=== PATIENT | female | born 1955 | race African-American/Black ===

== ENCOUNTER 2017-01-31 14:27 | Emergency (ER) | payer BC ==
[~2017-01-31] VITALS: Ht 175.3 cm; Wt 70.0 kg
[2017-01-31 14:28] VITALS: BP 162/80; PULSE 62; RESP 20; TEMP 98.6; O2SAT 100
--- NOTE | 2017-01-31 14:47 | PD ---
Physical Exam Time Seen by Provider: 14:47 Narrative 61 y/o female with a painful lump in the back of her neck. Vital signs reviewed. seen at triage desk. Awaiting bed placement. Data Data Last Documented VS Vital Signs Date Time Temp Pulse Resp B/P Pulse Ox O2 Delivery O2 Flow Rate FiO2 01/31/17 14:28 98.6 62 20 162/80 100 Room Air MDM Medical Record Reviewed: Yes Supervised Visit with KOTA: Angel Duran Jan 31, 2017 14:47
[2017-01-31] MEDS ORDERED: CLIN1CAP5 PO (15:21)
[2017-01-31] MEDS ORDERED: IBUP-232 PO (15:21)
--- NOTE | 2017-01-31 15:21 | PD ---
HPI Chief Complaint: Skin Problem Time Seen by Provider: 15:18 Travel History International Travel<30 days: No Contact w/Intl Traveler<30days: No Traveled to known affect area: No History of Present Illness HPI 61-year-old female presents emergency Department with complaint of a lump to her upper back that is painful and red times one week with worsening since last night. Denies fever, vomiting. Has not taken any medications or trenching severely her symptoms. PFSH Social History Tobacco Use: No Allergies-Medications (Allergen,Severity, Reaction): Coded Allergies: Latex (Verified Allergy, Unknown, rashes, 01/31/17) PEANUTS (Verified Allergy, Unknown, swelling , 01/31/17) Sulfa (Verified Allergy, Unknown, swelling, 01/31/17) Reported Meds & Prescriptions Reported Meds & Active Scripts Active Ibuprofen 600 Mg Tab 600 Mg PO Q6H PRN Clindamycin (Clindamycin HCl) 150 Mg Cap 450 Mg PO Q6H 10 Days Reported Bystolic (Nebivolol) 5 Mg Tab 5 Mg PO DAILY Losartan (Losartan Potassium) 100 Mg Tab 100 Mg PO DAILY Review of Systems Except as stated in HPI: all other systems reviewed are Neg Physical Exam Narrative GENERAL: Well-nourished, well-developed female patient, in no acute distress; afebrile, nontoxic-appearing SKIN: There is an indurated area to the mid upper back which measures about 1 cm in diameter. It is nonfluctuant and there is no pointing or drainage. There is a zone of inflammation around it but no lymphangitis. HEAD: Atraumatic. Normocephalic. EYES: Pupils equal and round. No scleral icterus. No injection or drainage. ENT: Mucosa pink and moist. Airway patent. NECK: Trachea midline. CARDIOVASCULAR: Regular rate. RESPIRATORY: No accessory muscle use. GASTROINTESTINAL: Flat. MUSCULOSKELETAL: No obvious deformities. No clubbing. No cyanosis. No edema. NEUROLOGICAL: Awake and alert. Oriented 3. No obvious cranial nerve deficits. Motor grossly within normal limits. Normal speech. PSYCHIATRIC: Appropriate mood and affect; insight and judgment normal. Data Data Last Documented VS Vital Signs Date Time Temp Pulse Resp B/P Pulse Ox O2 Delivery O2 Flow Rate FiO2 01/31/17 14:28 98.6 62 20 162/80 100 Room Air MDM Medical Decision Making Medical Screen Exam Complete: Yes Emergency Medical Condition: Yes Medical Record Reviewed: Yes Differential Diagnosis Abscess, folliculitis, cellulitis Narrative Course 61-year-old female who exam consistent with a nonfluctuant abscess to the mid upper back. It is approximately 1 cm in diameter and without pointing or drainage. Clindamycin and ibuprofen prescribed for home. Instructed patient to follow up with primary care provider. Patient verbalizes understanding and agreement with treatment plan. Patient is medically cleared and stable for discharge. Discussed reasons to return to the emergency department. Patient agrees with treatment plan. The patients vital signs are stable and the patient is stable for outpatient follow-up and treatment. Patient discharged home, stable and in no acute distress. Diagnosis Primary Impression: Abscess of back Referrals: Primary Care Physician Patient Instructions: Abscess (ED), Abscess Follow-up (ED), General Instructions Additional Instructions: Complete full course of antibiotics Warm compresses to the affected area Keep area clean and dry Ibuprofen or Tylenol as directed and as needed for pain and inflammation Follow-up with primary care provider Return to emergency department immediately with worsening of symptoms Med/Other Pt SpecificInfo: Prescription(s) given Scripts Ibuprofen 600 Mg [id number] Mg PO Q6H PRN (PAIN) #30 TAB Ref 0 Prov:Riri Ballard 01/31/17 Clindamycin 150 Mg [id number] Mg PO Q6H 10 Days Ref 0 Prov:Riri Ballard 01/31/17 Disposition: 01 DISCHARGE HOME Condition: Stable Riri Ballard Jan 31, 2017 15:21
[2017-01-31] MEDS ORDERED: BYST5TAB2 PO (15:28)
[2017-01-31] MEDS ORDERED: LOSA100T PO (15:28)
== END 2017-01-31 15:43 | disposition home or self-care (01) ==
LOC: NEPK 14:27
DX: L02.212 Cutaneous abscess of back [any part, except buttock and flank] (principal); Z79.899 Other long term (current) drug therapy; Z88.2 Allergy status to sulfonamides
CPT/HCPCS: 99283